=== PATIENT | female | born 1945 | race Caucasian/White ===

== ENCOUNTER 2019-02-22 19:26 | Inpatient (IN) | payer MEDICARE ==
[~2019-02-22] VITALS: Ht 160 cm; Wt 68.1 kg
[2019-02-22] MEDS ORDERED: morphine 4 MG/ML VIAL IV STA (22:33)
[2019-02-22] MEDS ORDERED: ONDANSETRON 4 MG INJ IV STA (22:33)
[2019-02-22] MEDS ORDERED: LORAZEPAM 2 MG INJ IV ONE (23:00)
[2019-02-23 00:15] VITALS: BP 120/62; PULSE 96; RESP 18
[2019-02-23] MEDS ORDERED: FAMOTIDINE 20 MG TAB PO ONE (03:30)
[2019-02-23] MEDS ORDERED: ONDANSETRON 4 MG INJ IV PRN (04:00)
[2019-02-23] MEDS ORDERED: DOCUSATE SODIUM 100 MG CAP PO PRN (04:00)
[2019-02-23] MEDS ORDERED: NITROGLYCERIN (SL) 0.4 MG TAB SL PRN (04:00)
[2019-02-23] MEDS ORDERED: NACL 0.9% 3 ML SYG IV SCH (04:00)
[2019-02-23] MEDS ORDERED: BISACODYL (EC) 5 MG TAB PO PRN (04:00)
[2019-02-23] MEDS ORDERED: ACETAMINOPHEN 325 MG TAB PO PRN (04:00)
--- NOTE | 2019-02-23 05:35 | HP ---
Date/Time of Note Date/Time of Note DATE: 02/23/19 TIME: 05:34 Assessment/Plan VTE Prophylaxis SCD applied (from Nsg): Yes Pharmacological prophylaxis: NA/contraindicated Pharm contraindication: low risk/ambulating Lines/Catheters IV Catheter Type (from Nrsg): Saline Lock Assessment/Plan Hospital Course This is a 73 old female being admitted to the telemetry floor for: #1 headaches: Patient has headaches times [address] brain does show lytic lesion which is concerning for possible metastatic disease. At the current time will obtain a CT of the chest and abdomen and pelvis to further evaluate for any other lesions. Patient does have anemia however no other abnormalities on initial labs. We will also obtain an MRI of the brain. Hematology consultation. #2 left hip pain: Times 2 months. X-rays do not show any overt abnormalities. I will proceed with a CT of the abdomen pelvis to further evaluate. #3 Normocytic anemia: We will check iron stores, check stool occult blood, check microscopic UA #4 possible panic attacks: Continue to monitor, PRN Ativan. #5 questionable chest pain: ED physician reported to me that the patient had chest pain, however as per the patient and the daughter she does not report any chest pain. Initial troponin was negative. One more set has been ordered. #6 DVT GI prophylaxis: SCDs, no GI prophylaxis indicated Further treatment strategy will be implemented as per the clinical course ++The daughter has requested that before any specific diagnosis is given to her mother she would like all the testing to be done prior to that and discuss with the daughter. Result Diagram: 02/22/19 2212 02/22/19 2212 Results 24hrs Laboratory Tests Test 02/22/19 22:12 02/23/19 04:31 White Blood Count 7.6 Red Blood Count 4.31 Hemoglobin 11.3 L Hematocrit 35.6 L Mean Corpuscular Volume 82.6 Mean Corpuscular Hemoglobin 26.2 L Mean Corpuscular Hemoglobin Concent 31.7 L Red Cell Distribution Width 13.1 Platelet Count 404 Mean Platelet Volume 9.3 Immature Granulocytes % 0.300 Neutrophils % 57.3 Lymphocytes % 29.6 Monocytes % 11.6 H Eosinophils % 0.7 Basophils % 0.5 Nucleated Red Blood Cells % 0.0 Immature Granulocytes # 0.020 Neutrophils # 4.4 Lymphocytes # 2.3 Monocytes # 0.9 Eosinophils # 0.1 Basophils # 0.0 Nucleated Red Blood Cells # 0.0 Prothrombin Time 13.4 Prothrombin Time Ratio 1.0 INR International Normalized Ratio 1.01 Activated Partial Thromboplast Time 31.7 Sodium Level 138 Potassium Level 4.6 Chloride Level 99 Carbon Dioxide Level 26 Anion Gap 13 Blood Urea Nitrogen 16 Creatinine 0.85 Est Glomerular Filtrat Rate mL/min Glucose Level 134 Calcium Level 10.5 H Troponin I < 0.012 < 0.012 Thyroid Stimulating Hormone (TSH) 1.360 Free Thyroxine Index 2.57 Thyroxine (T4) 8.6 Triiodothyronine (T3) Uptake 29.9 Hemoglobin A1c 6.5 H Magnesium Level 1.9 Iron Level < 10 L Total Iron Binding Capacity 225 L Percent Iron Saturation Creatine Kinase 36 Creatine Kinase Index 1.8 Creatinine Kinase MB (Mass) 0.66 Triglycerides Level 101 Cholesterol Level 147 LDL Cholesterol, Calculated 92 HDL Cholesterol 35 Cholesterol/HDL Ratio 4.2 HPI/ROS Admit Date/Time Admit Date/Time Hx of Present Illness Chief complaint: Headaches, hip pain This is a 73-year-old female who presented to the emergency department with complaints of headaches and hip pain. History was obtained from the daughter. Daughter states that the patient has been complaining of left-sided hip pain times 2 months. She does walk with a limp. She also has been complaining of a headache times 1 month. She denies any changes in her vision. The daughter does report that the patient has been taking care of her who is sick at home and because of that she has also noticed that her mom seems to have panic attacks. Where she feels palpitations and takes an aspirin and then a couple minutes later she feels better. Daughter also reports that she has had poor appetite and has experienced some weight loss. Denies any fevers chills or nausea vomiting or diarrhea. Patient does confirm with the daughter was saying regarding having possible panic attacks. She states that these had did start after her was diagnosed with his clinical condition. She has been taking care of him since then and has been dealing with a lot of stress about the situation. She has episodes where she feels a sudden rash and she starts noticing her breathing and her heart beating fast. She takes aspirin and then a couple minutes later she feels better, which her daughter reported as well. She though denies any chest pain or chest pressure. Of note the ED physician reported to me that the patient also was complaining of chest pain, however patient and daughter deny any chest pain. Allergies: NKDA Medications: None ROS Const: As per HPI Eyes : No pain discharge or redness or change in visual acuity ENT: No pain, sore throat, congestion, congestion, dysphagia or discharge Respiratory: No shortness of breath, cough, sputum, wheezing, or pleuritic pain Cardiovascular: No chest pain, palpitation, PND, or edema GI : no change in appetite, abdominal pain, nausea, vomiting, diarrhea, constipation, or change in the color his stool Genitourinary: No dysuria, hematuria, flank pain , discharge or CVA tenderness Musculoskeletal: As per HPI Skin: No rash, bruising or hives Neuro: As per HPI Endocrine: No polyuria, polydipsia, temperature intolerance Psych: No hallucination, depression, anxiety or suicidal ideation Additional Comments PROCEDURE: XR left Hip. CLINICAL INDICATION: Pain TECHNIQUE: AP view of the left hip were performed. COMPARISON: None. FINDINGS: Mild degenerate joint disease left hip. No acute fracture dislocation. No focal bony blastic or lytic lesion. Soft tissues are unremarkable. IMPRESSION: Limited evaluation of the left hip demonstrating mild degenerate joint disease without fracture or malalignment. RPTAT:AAJJ Physician Crispin Date Time Electronically viewed and signed by Physician Crispin on 02/23/2019 02:39 BM/ CC: PB FITZGERALD [id number] PROCEDURE: CT Brain without contrast. CLINICAL INDICATION: Headache TECHNIQUE: A CT of the brain was performed on a multidetector CT scanner utilizing axial imaging from the skull base through the vertex without IV cont rast. Multiplanar reformatted images were made. Images were reviewed on a PACS workstation. The CTDIvol is 38 mGy and the DLP is it 634 mGycm. DICOM images are available. One or more of the following dose reduction techniques were utilized: 1.) Automated exposure control 2.) Adjustment of the mA +/- kV according to patient's size 3.) Use of iterative reconstruction technique. COMPARISON: None FINDINGS: There is moderate diffuse cerebral volume loss with sulcal and ventricular dilat ation. No discrete extra-axial fluid collection or masses seen. The ventricles are in the midline and of normal configuration. Noted are chronic infarcts on the posterior right greater than left cerebellar hemisphere. There is periventricular white matter disease in both cerebral hemispheres. There is no associated mass effect. There is preservation of normal ng-white differentiation. No intracranial hemorrhage is seen. Noted is a well-demarcated lucent lesion of the left frontal bone measuring 19 mm in diameter extending through both the inner and outer table . There is a lytic lesion of the left clivus. IMPRESSION: Atrophy. White matter disease compatible with chronic small vessel ischemia. 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 No intracranial hemorrhage, mass or evidence of acute transcortical infarct. Lytic lesions left frontal bone and left clivus - rule out metastatic disease. .Prosper Alegre MD, MD Date Time Electronically viewed and signed by .Prosper Alegre MD, MD on 02/22/2019 23:55 .A/ CC: PB FITZGERALD [id number] PROCEDURE: Chest x-ray CLINICAL INDICATION: Shortness of breath TECHNIQUE: Chest single view COMPARISON: None FINDINGS: The heart is normal in size. The pulmonary vessels are normal in caliber. The lungs are clear. The costophrenic angles are sharp. The visualized bony thorax is unremarkable. IMPRESSION: No acute cardiopulmonary disease. RPTAT: HH .Hawk Mckenzie MD, MD Date Time Electronically viewed and signed by .Hawk Mckenzie MD, MD on 02/22/2019 23:33 .W/ CC: PB FITZGERALD [id number] PMH/Family/Social Past Medical History Vaginal prolapse Medications Current Medications IV Flush (NS 3 ml) 3 ml PER PROTOCOL IV ; Start 02/23/19 at 04:00 Ondansetron HCl (Zofran Inj) 4 mg Q6H PRN IV NAUSEA/VOMITING; Start 02/23/19 at 04:00 Nitroglycerin (Nitroglycerin (Sl Tab) 0.4 Mg) 1 tab Q5M PRN SL .CHEST PAIN; Start 02/23/19 at 04:00 Acetaminophen (Tylenol Tab) 650 mg Q6H PRN PO .PAIN 1-3 OR TEMP Last administered on 02/23/19at 04:36; Admin Dose 650 MG; Start 02/23/19 at 04:00 Morphine Sulfate (morphine) 2 mg Q4H PRN IV .PAIN 7-10; Start 02/23/19 at 04:00 Docusate Sodium (Colace) 100 mg Q12H PRN PO .CONSTIPATION; Start 02/23/19 at 04:00 Bisacodyl (Dulcolax) 5 mg DAILY PRN PO .CONSTIPATION; Start 02/23/19 at 04:00 Coded Allergies: No Known Drug Allergies (Verified Allergy, Unknown, 02/22/19) Past Surgical History Past Surgical Hx: no surgical history Family History Significant Family History: no pertinent family hx Social History Alcohol Use: none Smoking Status: Never smoker Drug Use: none Exam/Review of Systems Vital Signs Vitals Vital Signs Date Temp Pulse Resp B/P (MAP) Pulse Ox O2 O2 Flow FiO2 Time Delivery Rate 02/23/19 71 20 103/56 100 Room Air 04:06 (72) 02/22/19 98.1 19:45 Exam Exam General: Patient is well-developed well-nourished The patient is alert oriented -3 lying comfortably in bed. HEENT: Atraumatic, normocephalic. The pupils are equal, round and reactive. Extraocular motor are intact Neck: Supple with full range of motion. No rigidity or meningismus Chest: Nontender Lungs: Clear to auscultation bilaterally no crackles rales or wheezing Heart: Normal S1-S2, Regular rhythm and rate. No murmur, S3, or S4 Abdomen: Soft , nontender, nondistended , bowel sounds are present. No guarding no rebound tenderness , No masses or organomegaly. No costovertebral temporal angle mass Extremities: Normal to inspection, no edema no cyanosis Neurologic: Normal mental status, speech normal, cranial nerves II through XII are intact, motor and sensory are intact, no focal weakness LOI REDDY Feb 23, 2019 05:35
[2019-02-23] MEDS ORDERED: LORAZEPAM 2 MG INJ IV PRN (06:30)
[2019-02-23] MEDS ORDERED: LORAZEPAM 0.5 MG TAB PO PRN (07:30)
[2019-02-23 12:39] VITALS: Ht 160 cm; Wt 68.1 kg
[2019-02-23] MEDS ORDERED: SOD FERRIC GLUC COMPLX 125 MG in SOD CHLORIDE 0.9% 100 ML IVPB SCH ×4 (13:00)
[2019-02-23 14:37] VITALS: BP 125/59; PULSE 90; RESP 19
--- NOTE | 2019-02-23 15:06 | CONS ---
Assessment/Plan Assessment/Plan Hospital Course (Demo Recall) #L renal mass #RP LAD #multiple lytic lesions through spine , pelvis and femur -the above radiologic findings certainly raise concern for metastatic cancer -will order a bone scan to more fully evaluate for metastatic bone disease -will order tumor markers including CEA. CA 125. CA 19-9. CA 15-3 -need to rule out myeloma. will check spep and QUIGS -pt will need a CT guided bx of the RLL lung nodule. will order Consultation Date/Type/Reason Admit Date/Time 02/23/19 Date of Consultation: Feb 23, 2019 Type of Consult oncology Reason for Consultation metastatic cancer Requesting Provider: LOI REDDY Date/Time of Note DATE: 02/23/19 TIME: 14:52 Hx of Present Illness 73 yo female who presents to ED today with complaints of headaches and hip pain x 2 mo. This is also accompanied with poor appetite and weight loss. 02/23/19 CT Chest revealed numerous nodules in both lungs measuring 1.3cm in R lung base in addition to multiple enlarged mediastinal LN. also seen are lytic lesions in the right second rib, T9 and T 10 all concerning for metastatic disease. 02/23/19 CT A/P reveals a 5.5cm mass in L eft kidney with multiple lytic lesions in lumbar spine, pelvic bones and femur. 02/22/[address] reveals no evidence of intracranial disease but does reveal a Lytic lesions left frontal bone and left clivus - WE have been consulted for further workup of a possible underlying malignancy Subjective hx not possible: pt non-verbal Constitutional: no complaints Eyes: no complaints ENT: no complaints Cardiovascular: chest pain, lightheadedness Gastrointestinal: no complaints Genitourinary: no complaints Musculoskeletal: back pain, bone/joint pain Neurologic: no complaints Endocrine: no complaints Lymphatic: no complaints Psychological: no complaints Past Medical History normocytic anemia Medical History: no pertinent history Home Meds No Active Prescriptions or Reported Meds Medications Current Medications IV Flush (NS 3 ml) 3 ml PER PROTOCOL IV ; Start 02/23/19 at 04:00 Ondansetron HCl (Zofran Inj) 4 mg Q6H PRN IV NAUSEA/VOMITING; Start 02/23/19 at 04:00 Nitroglycerin (Nitroglycerin (Sl Tab) 0.4 Mg) 1 tab Q5M PRN SL .CHEST PAIN; Start 02/23/19 at 04:00 Acetaminophen (Tylenol Tab) 650 mg Q6H PRN PO .PAIN 1-3 OR TEMP Last administered on 02/23/19at 04:36; Admin Dose 650 MG; Start 02/23/19 at 04:00 Morphine Sulfate (morphine) 2 mg Q4H PRN IV .PAIN 7-10; Start 02/23/19 at 04:00 Docusate Sodium (Colace) 100 mg Q12H PRN PO .CONSTIPATION; Start 02/23/19 at 04:00 Bisacodyl (Dulcolax) 5 mg DAILY PRN PO .CONSTIPATION; Start 02/23/19 at 04:00 Ferric Sodium Gluconate Complex 125 mg/Sodium Chloride 100 ml @ 100 mls/hr DAILY@1300 IVPB ; Start 02/23/19 at 13:00; Stop 02/25/19 at 13:59 Lorazepam (Ativan) 0.5 mg BID PRN PO AGITATION/ANXIETY; Start 02/23/19 at 07:30 Allergies: Coded Allergies: No Known Drug Allergies (Verified Allergy, Unknown, 02/22/19) Past Surgical History Past Surgical Hx: no surgical history Family History Significant Family History: no pertinent family hx Social History Alcohol Use: none Smoking Status: Never smoker Drug Use: none Exam/Review of Systems Exam Vitals Vital Signs Date Temp Pulse Resp B/P (MAP) Pulse Ox O2 O2 Flow FiO2 Time Delivery Rate 02/23/19 97.9 90 19 125/59 96 14:37 (81) 02/23/19 Room Air 11:47 Constitutional: alert, oriented Psych: no complaints Head: normocephalic Eyes: nl conjunctiva ENMT: nl external ears & nose Neck: supple Respiratory: clear to auscultation Cardiovascular: regular rate and rhythm Gastrointestinal: soft Musculoskeletal: nl extremities to inspection Extremities: normal pulses Results Result Diagram: 02/22/19 2212 02/22/19 2212 Results 24hrs Laboratory Tests Test 02/22/19 22:12 02/23/19 04:31 02/23/19 10:43 White Blood Count 7.6 Red Blood Count 4.31 Hemoglobin 11.3 L Hematocrit 35.6 L Mean Corpuscular Volume 82.6 Mean Corpuscular Hemoglobin 26.2 L Mean Corpuscular Hemoglobin Concent 31.7 L Red Cell Distribution Width 13.1 Platelet Count 404 Mean Platelet Volume 9.3 Immature Granulocytes % 0.300 Neutrophils % 57.3 Lymphocytes % 29.6 Monocytes % 11.6 H Eosinophils % 0.7 Basophils % 0.5 Nucleated Red Blood Cells % 0.0 Immature Granulocytes # 0.020 Neutrophils # 4.4 Lymphocytes # 2.3 Monocytes # 0.9 Eosinophils # 0.1 Basophils # 0.0 Nucleated Red Blood Cells # 0.0 Prothrombin Time 13.4 Prothrombin Time Ratio 1.0 INR International Normalized Ratio 1.01 Activated Partial Thromboplast Time 31.7 Sodium Level 138 Potassium Level 4.6 Chloride Level 99 Carbon Dioxide Level 26 Anion Gap 13 Blood Urea Nitrogen 16 Creatinine 0.85 Est Glomerular Filtrat Rate mL/min Glucose Level 134 Calcium Level 10.5 H Troponin I < 0.012 < 0.012 < 0.012 Thyroid Stimulating Hormone (TSH) 1.360 1.310 Free Thyroxine Index 2.57 Thyroxine (T4) 8.6 Triiodothyronine (T3) Uptake 29.9 Absolute Reticulocyte Count 0.031 Percent Reticulocyte Count 0.9 Hemoglobin A1c 6.5 H Magnesium Level 1.9 Iron Level < 10 L Total Iron Binding Capacity 225 L Percent Iron Saturation Ferritin 158.0 Lactate Dehydrogenase 413 Creatine Kinase 36 34 Creatine Kinase Index 1.8 1.3 Creatinine Kinase MB (Mass) 0.66 0.44 Triglycerides Level 101 Cholesterol Level 147 LDL Cholesterol, Calculated 92 HDL Cholesterol 35 Cholesterol/HDL Ratio 4.2 Medications Medication Current Medications IV Flush (NS 3 ml) 3 ml PER PROTOCOL IV ; Start 02/23/19 at 04:00 Ondansetron HCl (Zofran Inj) 4 mg Q6H PRN IV NAUSEA/VOMITING; Start 02/23/19 at 04:00 Nitroglycerin (Nitroglycerin (Sl Tab) 0.4 Mg) 1 tab Q5M PRN SL .CHEST PAIN; Start 02/23/19 at 04:00 Acetaminophen (Tylenol Tab) 650 mg Q6H PRN PO .PAIN 1-3 OR TEMP Last admin istered on 02/23/19at 04:36; Admin Dose 650 MG; Start 02/23/19 at 04:00 Morphine Sulfate (morphine) 2 mg Q4H PRN IV .PAIN 7-10; Start 02/23/19 at 04:00 Docusate Sodium (Colace) 100 mg Q12H PRN PO .CONSTIPATION; Start 02/23/19 at 04:00 Bisacodyl (Dulcolax) 5 mg DAILY PRN PO .CONSTIPATION; Start 02/23/19 at 04:00 Ferric Sodium Gluconate Complex 125 mg/Sodium Chloride 100 ml @ 100 mls/hr DAILY@1300 IVPB ; Start 02/23/19 at 13:00; Stop 02/25/19 at 13:59 Lorazepam (Ativan) 0.5 mg BID PRN PO AGITATION/ANXIETY; Start 02/23/19 at 07:30 ELENA ANAYA M.D. Feb 23, 2019 15:02
[2019-02-23] MEDS: morphine 2 MG INJ IV PRN ×2 (15:25→19:55)
--- NOTE | 2019-02-23 15:44 | PN ---
Date/Time of Note Date/Time of Note DATE: 02/23/19 TIME: 15:38 Assessment/Plan VTE Prophylaxis SCD applied (from Nsg): Yes Pharmacological prophylaxis: NA/contraindicated Pharm contraindication: low risk/ambulating Lines/Catheters IV Catheter Type (from Nrsg): Saline Lock Urinary Cath still in place: No Assessment/Plan Assessment/Plan 73 yo woman who presents to the ED with headaches and L hip pain; found to have L hip osteoarthritis and diffuse bony lesions concerning for metastatic disease. #Fatigue #Anorexia #Diffuse bony lesions seen on CT - Probably due to metastatic disease - Dr. Valverde consulted - Will pursue CT-guided lung nodule biopsy. - On admission the patient's daughter apparently had requested not to disclose information to the patient; but when I asked the patient if she wants to know the results of the scan she said yes so I told her. #Headaches - Currently pain well controlled on tylenol - May be due to bony lytic lesion in skill. #L hip pain - Probably due to left hip osteoarthritis - NSAIDs, tylenol # Normocytic anemia: - Iron panel consistent with anemia of chronic disease # possible panic attacks: PRN Ativan. # questionable chest pain: ED physician reported that the patient had chest pain, however as per the patient and the daughter she does not report any chest pain. Initial troponin was negative. One more set has been ordered. # DVT GI prophylaxis: SCDs, no GI prophylaxis indicated Result Diagram: 02/22/19 2212 02/22/19 2212 Subjective 24 Hr Interval Summary Free Text/Dictation No acute overnight events. Headache resolving. I informed the patient of CT findings and explained they may represent cancer. I stayed and answered questions. Exam/Review of Systems Exam Vitals Vital Signs Date Temp Pulse Resp B/P (MAP) Pulse Ox O2 O2 Flow FiO2 Time Delivery Rate 02/23/19 97.9 90 19 125/59 96 14:37 (81) 02/23/19 Room Air 11:47 Exam General: Well developed woman lying supine in gurney. HEENT: Atraumatic, normocephalic. The pupils are equal, round and reactive. Extraocular motor are intact Neck: Supple with full range of motion. No rigidity or meningismus Chest: Nontender Lungs: Clear to auscultation bilaterally no crackles rales or wheezing Heart: Normal S1-S2, Regular rhythm and rate. No murmur, S3, or S4 Abdomen: Soft , nontender, nondistended , bowel sounds are present. No guarding no rebound tenderness , No masses or organomegaly. No costovertebral temporal angle mass Extremities: Normal to inspection, no edema no cyanosis Results Results 24hrs Laboratory Tests Test 02/22/19 22:12 02/23/19 04:31 02/23/19 10:43 White Blood Count 7.6 Red Blood Count 4.31 Hemoglobin 11.3 L Hematocrit 35.6 L Mean Corpuscular Volume 82.6 Mean Corpuscular Hemoglobin 26.2 L Mean Corpuscular Hemoglobin Concent 31.7 L Red Cell Distribution Width 13.1 Platelet Count 404 Mean Platelet Volume 9.3 Immature Granulocytes % 0.300 Neutrophils % 57.3 Lymphocytes % 29.6 Monocytes % 11.6 H Eosinophils % 0.7 Basophils % 0.5 Nucleated Red Blood Cells % 0.0 Immature Granulocytes # 0.020 Neutrophils # 4.4 Lymphocytes # 2.3 Monocytes # 0.9 Eosinophils # 0.1 Basophils # 0.0 Nucleated Red Blood Cells # 0.0 Prothrombin Time 13.4 Prothrombin Time Ratio 1.0 INR International Normalized Ratio 1.01 Activated Partial Thromboplast Time 31.7 Sodium Level 138 Potassium Level 4.6 Chloride Level 99 Carbon Dioxide Level 26 Anion Gap 13 Blood Urea Nitrogen 16 Creatinine 0.85 Est Glomerular Filtrat Rate mL/min Glucose Level 134 Calcium Level 10.5 H Troponin I < 0.012 < 0.012 < 0.012 Thyroid Stimulating Hormone (TSH) 1.360 1.310 Free Thyroxine Index 2.57 Thyroxine (T4) 8.6 Triiodothyronine (T3) Uptake 29.9 Absolute Reticulocyte Count 0.031 Percent Reticulocyte Count 0.9 Hemoglobin A1c 6.5 H Magnesium Level 1.9 Iron Level < 10 L Total Iron Binding Capacity 225 L Percent Iron Saturation Ferritin 158.0 Lactate Dehydrogenase 413 Creatine Kinase 36 34 Creatine Kinase Index 1.8 1.3 Creatinine Kinase MB (Mass) 0.66 0.44 Triglycerides Level 101 Cholesterol Level 147 LDL Cholesterol, Calculated 92 HDL Cholesterol 35 Cholesterol/HDL Ratio 4.2 Medications Medication Current Medications IV Flush (NS 3 ml) 3 ml PER PROTOCOL IV ; Start 02/23/19 at 04:00 Ondansetron HCl (Zofran Inj) 4 mg Q6H PRN IV NAUSEA/VOMITING; Start 02/23/19 at 04:00 Nitroglycerin (Nitroglycerin (Sl Tab) 0.4 Mg) 1 tab Q5M PRN SL .CHEST PAIN; Start 02/23/19 at 04:00 Acetaminophen (Tylenol Tab) 650 mg Q6H PRN PO .PAIN 1-3 OR TEMP Last administered on 02/23/19at 04:36; Admin Dose 650 MG; Start 02/23/19 at 04:00 Morphine Sulfate (morphine) 2 mg Q4H PRN IV .PAIN 7-10 Last administered on 02/23/19at 15:25; Admin Dose 2 MG; Start 02/23/19 at 04:00 Docusate Sodium (Colace) 100 mg Q12H PRN PO .CONSTIPATION; Start 02/23/19 at 04:00 Bisacodyl (Dulcolax) 5 mg DAILY PRN PO .CONSTIPATION; Start 02/23/19 at 04:00 Ferric Sodium Gluconate Complex 125 mg/Sodium Chloride 100 ml @ 100 mls/hr DAILY@1300 IVPB ; Start 02/23/19 at 13:00; Stop 02/25/19 at 13:59 Lorazepam (Ativan) 0.5 mg BID PRN PO AGITATION/ANXIETY; Start 02/23/19 at 07:30 PRAFUL VELASQUEZ MD Feb 23, 2019 15:44
[2019-02-23 20:48] VITALS: BP 121/58; PULSE 98; RESP 16
[2019-02-24] MEDS: morphine 2 MG INJ IV PRN (00:01)
[2019-02-24 02:35] VITALS: BP 121/88; PULSE 79; RESP 16
[2019-02-24 08:34] VITALS: BP 121/66; PULSE 87; RESP 18
--- NOTE | 2019-02-24 09:41 | CONS ---
Assessment/Plan Assessment/Plan Hospital Course (Demo Recall) #L renal mass #RP LAD #multiple lytic lesions through spine , pelvis and femur -the above radiologic findings certainly raise concern for metastatic cancer -will order a bone scan to more fully evaluate for metastatic bone disease -will order tumor markers including CEA. CA 125. CA 19-9. CA 15-3 -need to rule out myeloma. will check spep and QUIGS -pt will need a CT guided bx of the sacral mass. to be done today Thank you for the opportunity to participate in this patients care A total of 40 minutes of face to face time was spent speaking with the patient, of which greater than 50% was spent in counseling and coordination of care and the detailed question and answer session. Consultation Date/Type/Reason Admit Date/Time Feb 24, 2019 at 09:08 Initial Consult Date 02/23/19 Type of Consult oncology Reason for Consultation metastatic cancer Requesting Provider: LOI REDDY Date/Time of Note DATE: 02/24/19 TIME: 09:40 24 HR Interval Summary Free Text/Dictation pt scheduled for bx of sacral mass today Exam/Review of Systems Exam Vitals Vital Signs Date Temp Pulse Resp B/P (MAP) Pulse Ox O2 O2 Flow FiO2 Time Delivery Rate 02/24/19 98.2 87 18 121/66 96 Room Air 08:34 (84) Intake and Output 02/23/19 02/23/19 02/24/19 1515:00 23:00 07:00 IntakeIntake Total 240 ml 340 ml BalanceBalance 240 ml 340 ml Constitutional: alert, oriented, frail Psych: anxiety, depression Head: normocephalic Eyes: nl conjunctiva ENMT: nl external ears & nose Neck: supple Respiratory: clear to auscultation Cardiovascular: regular rate and rhythm Gastrointestinal: soft Genitourinary - Female: nl adnexae Musculoskeletal: nl extremities to inspection Extremities: normal pulses Results Result Diagram: 02/24/19 0501 02/24/19 0501 Results 24hrs Laboratory Tests Test 02/23/19 10:42 02/23/19 10:43 02/24/19 05:01 Carcinoembryonic Antigen 0.8 CA 19-9 Antigen 85.4 H CA 125 Antigen 7.3 Immunoglobulin A 330 Immunoglobulin G 1129 Immunoglobulin M 86 Creatine Kinase 34 Creatine Kinase Index 1.3 Creatinine Kinase MB (Mass) 0.44 Troponin I < 0.012 White Blood Count 5.8 # Red Blood Count 3.72 L Hemoglobin 9.8 L Hematocrit 31.6 L Mean Corpuscular Volume 84.9 Mean Corpuscular Hemoglobin 26.3 L Mean Corpuscular Hemoglobin Concent 31.0 L Red Cell Distribution Width 12.8 Platelet Count 314 # Mean Platelet Volume 9.3 Immature Granulocytes % 0.200 Neutrophils % 53.3 Lymphocytes % 31.8 Monocytes % 12.6 H Eosinophils % 1.6 Basophils % 0.5 Nucleated Red Blood Cells % 0.0 Immature Granulocytes # 0.010 Neutrophils # 3.1 Lymphocytes # 1.8 Monocytes # 0.7 Eosinophils # 0.1 Basophils # 0.0 Nucleated Red Blood Cells # 0.0 Sodium Level 139 Potassium Level 4.8 Chloride Level 103 Carbon Dioxide Level 30 Anion Gap 6 Blood Urea Nitrogen 16 Creatinine 0.89 Est Glomerular Filtrat Rate mL/min Glucose Level 113 Calcium Level 9.9 Iron Level 33 #L Total Iron Binding Capacity 268 Percent Iron Saturation 12 L Ferritin 193.0 Total Bilirubin 0.3 Direct Bilirubin 0.00 Indirect Bilirubin 0.3 Aspartate Amino Transf (AST/SGOT) 13 L Alanine Aminotransferase (ALT/SGPT) 8 L Alkaline Phosphatase 81 Total Protein 6.8 Albumin 3.5 Globulin 3.30 H Albumin/Globulin Ratio 1.06 Medications Medication Current Medications IV Flush (NS 3 ml) 3 ml PER PROTOCOL IV ; Start 02/23/19 at 04:00 Ondansetron HCl (Zofran Inj) 4 mg Q6H PRN IV NAUSEA/VOMITING; Start 02/23/19 at 04:00 Nitroglycerin (Nitroglycerin (Sl Tab) 0.4 Mg) 1 tab Q5M PRN SL .CHEST PAIN; Start 02/23/19 at 04:00 Acetaminophen (Tylenol Tab) 650 mg Q6H PRN PO .PAIN 1-3 OR TEMP Last administered on 02/23/19at 04:36; Admin Dose 650 MG; Start 02/23/19 at 04:00 Morphine Sulfate (morphine) 2 mg Q4H PRN IV .PAIN 7-10 Last administered on 02/24/19at 00:01; Admin Dose 2 MG; Start 02/23/19 at 04:00 Docusate Sodium (Colace) 100 mg Q12H PRN PO .CONSTIPATION; Start 02/23/19 at 04:00 Bisacodyl (Dulcolax) 5 mg DAILY PRN PO .CONSTIPATION; Start 02/23/19 at 04:00 Ferric Sodium Gluconate Complex 125 mg/Sodium Chloride 100 ml @ 100 mls/hr DAILY@1300 IVPB Last administered on 02/23/19at 16:57; Admin Dose 100 MLS/HR; Start 02/23/19 at 13:00; Stop 02/25/19 at 13:59 Lorazepam (Ativan) 0.5 mg BID PRN PO AGITATION/ANXIETY; Start 02/23/19 at 07:30 ELENA ANAYA M.D. Feb 24, 2019 09:41
[2019-02-24] MEDS ORDERED: LIDOCAINE 1% (MDV) 20 ML INJ ONE (10:48)
[2019-02-24] MEDS ORDERED: SOD CHLORIDE 0.9% 500 ML ONE (10:50)
[2019-02-24] MEDS ORDERED: FENTAnyl 50 MCG/ML VIAL ONE (10:50)
[2019-02-24] MEDS ORDERED: MIDAZOLAM 1 MG/ML 2 ML INJ ONE (10:50)
[2019-02-24] MEDS ORDERED: HYDR-4011 PO (12:58)
--- NOTE | 2019-02-24 13:00 | PDOCDIS ---
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 For pain, take ibuprofen up to 800mg up to every 4 hours. Also take acetaminophen 650mg as needed. Do not take more than 3000 mg per day. 2. For severe pain, take [place] as prescribed. Do not drink alcohol, drive, or operate machinery after taking [place]. [place] may cause severe constipation as well. 3. See your primary care doctor in 1-2 weeks. PRAFUL VELASQUEZ MD Feb 24, 2019 13:00
--- NOTE | 2019-02-24 14:43 | DS ---
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 Valverde, medical oncology Procedures None Hx of Present Illness Chief complaint: Headaches, hip pain This is a 73-year-old female who presented to the emergency department with complaints of headaches and hip pain. History was obtained from the daughter. Daughter states that the patient has been complaining of left-sided hip pain times 2 months. She does walk with a limp. She also has been complaining of a headache times 1 month. She denies any changes in her vision. The daughter does report that the patient has been taking care of her who is sick at home and because of that she has also noticed that her mom seems to have panic attacks. Where she feels palpitations and takes an aspirin and then a couple minutes later she feels better. Daughter also reports that she has had poor appetite and has experienced some weight loss. Denies any fevers chills or nausea vomiting or diarrhea. Patient does confirm with the daughter was saying regarding having possible panic attacks. She states that these had did start after her was diagnosed with his clinical condition. She has been taking care of him since then and has been dealing with a lot of stress about the situation. She has episodes where she feels a sudden rash and she starts noticing her breathing and her heart beating fast. She takes aspirin and then a couple minutes later she feels better, which her daughter reported as well. She though denies any chest pain or chest pressure. Of note the ED physician reported to me that the patient also was complaining of chest pain, however patient and daughter deny any chest pain. Allergies: NKDA Medications: None Hospital Course CT head was done showing what appears to be a 2 cm left frontal bone lytic lesion. To further evaluate, CT chest/abdomen/pelvis was done. This showed diffuse bony metastases involving multiple vertebrae and the pelvis. Additionally, there was a 5.5 cm heterogeneous exophytic mass in the left kidney suspicious for renal malignancy as well as multiple pulmonary nodules. Labs were notable for anemia of chronic disease. Of the tumor markers; CEA and CA125 were in the normal range. CA 19-[address] Valverde with medical oncology was consulted. She ordered a NM bone scan and a core needle biopsy of the sacrum. After the patient was draped and prepped for the latter procedure, she was abandoned in the procedure room while the radiologist was called to an emergency. The patient was unhappy with this situation and requested discharge to pursue cancer workup elsewhere. I discussed at length with the patient and her family prior to discharge. They plan to take her to [facility]. I provided the family with the CDs of all imaging we have done here. Additionally I prescribed [place] for her headache; which is likely due to her metastatic disease and is not responsive to ibuprofen and tylenol. Home Meds Active Scripts Hydrocodone/Acetaminophen ([place] 5-325 Tablet) 1 Each Tablet, 1 EACH PO Q6, #20 TAB Prov:PRAFUL VELASQUEZ MD 02/24/19 Follow-up Plan 1. For pain, take ibuprofen up to 800mg up to every 4 hours. Also take acetam inophen 650mg as needed. Do not take more than 3000 mg per day. 2. For severe pain, take [place] as prescribed. Do not drink alcohol, drive, or operate machinery after taking [place]. [place] may cause severe constipation as well. 3. See your primary care doctor in 1-2 weeks. Primary Care Provider Not On Staff Doctor Time spent on discharge: > 30 minutes Pending Labs Laboratory Tests Test 02/24/19 05:01 White Blood Count 5.8 10^3/ul (4.8-10.8) Red Blood Count 3.72 10^6/ul (4.20-5.40) Hemoglobin 9.8 g/dl (12.0-16.0) Hematocrit 31.6 % (37.0-47.0) Mean Corpuscular Volume 84.9 fl (82.0-101.0) Mean Corpuscular Hemoglobin 26.3 pg (29.0-33.0) Mean Corpuscular Hemoglobin Concent 31.0 g/dl (32.0-37.0) Red Cell Distribution Width 12.8 % (11.5-14.5) Platelet Count 314 10^3/UL (140-415) Mean Platelet Volume 9.3 fl (7.4-10.4) Immature Granulocytes % 0.200 % (0.001-0.429) Neutrophils % 53.3 % (39.0-77.0) Lymphocytes % 31.8 % (15.0-51.0) Monocytes % 12.6 % (0.0-11.0) Eosinophils % 1.6 % (0.0-7.0) Basophils % 0.5 % (0.0-2.0) Nucleated Red Blood Cells % 0.0 /100WBC (0.0-0.0) Immature Granulocytes # 0.010 10^3/ul (0.0-0.031) Neutrophils # 3.1 10^3/ul (1.6-7.5) Lymphocytes # 1.8 10^3/ul (0.8-2.9) Monocytes # 0.7 10^3/ul (0.3-0.9) Eosinophils # 0.1 10^3/ul (0.0-0.5) Basophils # 0.0 10^3/ul (0.0-0.1) Nucleated Red Blood Cells # 0.0 10^3/ul (0.0-0.0) Sodium Level 139 mmol/L (135-144) Potassium Level 4.8 mmol/L (3.5-5.1) Chloride Level 103 mmol/L (97-110) Carbon Dioxide Level 30 mmol/L (21-31) Anion Gap 6 (5-13) Blood Urea Nitrogen 16 mg/dl (7-20) Creatinine 0.89 mg/dl (0.44-1.00) Est Glomerular Filtrat Rate mL/min mL/min (>60) Glucose Level 113 mg/dl (70-220) Calcium Level 9.9 mg/dl (8.4-10.2) Iron Level 33 ug/dl (35-150) Total Iron Binding Capacity 268 ug/dl (241-421) Percent Iron Saturation 12 % SAT (22-52) Ferritin 193.0 ng/ml (11.1-264.0) Total Bilirubin 0.3 mg/dl (0.2-1.3) Direct Bilirubin 0.00 mg/dl (0.00-0.20) Indirect Bilirubin 0.3 mg/dl (0-1.1) Aspartate Amino Transf (AST/SGOT) 13 IU/L (15-46) Alanine Aminotransferase (ALT/SGPT) 8 IU/L (13-69) Alkaline Phosphatase 81 IU/L (42-121) Total Protein 6.8 g/dl (6.1-8.1) Albumin 3.5 g/dl (3.3-4.9) Globulin 3.30 g/dl (1.3-3.2) Albumin/Globulin Ratio 1.06 PRAFUL VELASQUEZ MD Feb 24, 2019 14:43
== END 2019-02-24 13:50 | disposition home or self-care (01) | DRG 543 ==
LOC: E/R 19:26 → PP2 02-23 03:25 → EDBEDREQSVC 02-23 05:08 → EDBEDREQ 02-23 05:08 → SUATTDRO 02-23 09:09 → EDBEDREQSVC 02-23 10:26 → OBSVTOIN 02-24 09:08
PROVIDERS: ADMIT Internal Medicine; ATTEND Internal Medicine
DX: C79.51 Secondary malignant neoplasm of bone (principal); C79.89 Secondary malignant neoplasm of other specified sites; D63.8 Anemia in other chronic diseases classified elsewhere; R51 Headache; M16.12 Unilateral primary osteoarthritis, left hip; F41.0 Panic disorder [episodic paroxysmal anxiety]; R07.9 Chest pain, unspecified; R59.1 Generalized enlarged lymph nodes; Z79.82 Long term (current) use of aspirin
CPT/HCPCS: 70450; 70552; 71045; 71250; 72192; 73500; 74176; 78306; 80048; 80053; 80061; 81001; 82378; 82550; 82553; 82728; 82784; 83036; 83540; 83615; 83735; 84155; 84165; 84436; 84443; 84479; 84484; 85025; 85045; 85610; 85730; 86300; 86301; 86304; 93005; A9503; G0378; J2060; J2250; J2270; J2405; J2916; J3010; J7040